=== PATIENT | female | born 1995 | race Two or more races ===

== ENCOUNTER 2016-10-25 21:22 | Emergency (ER) | payer OTHER ==
[~2016-10-25] VITALS: Ht 157.5 cm; Wt 93.0 kg
[2016-10-25 21:45] VITALS: BP 142/102
== END 2016-10-26 00:30 | disposition left against medical advice (07) ==
LOC: ER 21:33
DX: R10.9 Unspecified abdominal pain (principal); Z53.21 Procedure and treatment not carried out due to patient leaving prior to being seen by health care provider